=== PATIENT | male | born 1950 | race Caucasian/White ===

== ENCOUNTER 2019-06-14 05:31 | Emergency (ER) | payer MEDICARE, OTHER ==
[~2019-06-14] VITALS: Ht 170.2 cm; Wt 80.0 kg
[2019-06-14 07:46] LABS: VENOUS BASE EXCESS -17.5 (-2.0-2.0); VENOUS HCO3 18.4 MEQ/L (23.0-27.0); VENOUS O2 SATURATION < 15.0 % (60.0-80.0); VENOUS PARTIAL PRESSURE CO2 119.9 mmHg (38.0-50.0); VENOUS PARTIAL PRESSURE O2 14.1 mmHg (30.0-50.0); VENOUS PH 6.803 UNITS (7.330-7.430)
[2019-06-14 11:04] VITALS: BP 132/63
[2019-06-14] MEDS ORDERED: PHENYLEPHRINE INJ 10MG/ML VIAL (J2370) XX ONE ×2 (11:30→11:45)
--- NOTE | 2019-06-14 11:30 | ER ---
DATE OF CONSULTATION: 06/14/2019 CHIEF COMPLAINT: Persistent erection. HISTORY: Mr. Webster is a 68-year-old man who underwent radical robotic prostatectomy about a year ago in [place]. He was prescribed TriMix injections for erectile dysfunction, which he used last night at the 0.15 dose. Since that time, his erection has persisted and has been associated over the last few hours with increasing pain. He presented to the emergency room. He had tried to take Sudafed at home, which was unsuccessful. He did have one episode of slightly prolonged erection following an injection in the past that did respond to Sudafed. He has had no fevers or chills. No other episodes of priapism. He has had occasional nocturnal erections, just starting in the last few weeks. He is a year out from his surgery. He is scheduled for a urologic followup next month. PAST HISTORY: Significant for prostate cancer surgery. The patient is semi-retired and . He is [place]. He is a nonsmoker. His prostate cancer was contained to prostate with followup PSA undetectable. The remainder of his past medical, surgical, social, family history and review of systems please refer to dictated ER notes. PHYSICAL EXAMINATION: Blood pressure is 158/88, pulse 85, respirations 16, saturation 98. In general, the patient appeared in moderate distress. Neck supple. Chest clear. Heart exam regular rate and rhythm. Neurologic exam nonfocal. Abdominal exam soft, nontender without appreciable mass. Flanks nontender. Genital exam showed an erect phallus that was rigid and quite tender. Testes descended without masses. Rectal exam not done. Extremity exam unremarkable. IMPRESSION: Medication related priapism. PROCEDURE: After discussing the situation and options with the patient, I advised aspiration, irrigation and Isai-Synephrine instillation. To this end, we prepped and draped the penis and obtained local anesthetic with 2 mL of 1% lidocaine. An 18 gauge needle was then inserted into the left corporal body and blood was aspirated. It was quite dark. PH was 6.8 with pO2 14 and pCO2 over 110, base deficit -17. Aspiration was continued until the blood improved to a reddish color. Thereafter we irrigated the corporal bodies with a total of 30 mL of a dilute solution of Isai-Synephrine formulated by placing a vial in 250 mL of injectable grade saline. A total of 30 mL was irrigated. The corporal body needle was then withdrawn and the patient was observed for an hour during which time he had resolution and no significant recurrence of erection. At final check, the phallus was completely flaccid and the patient was in no discomfort. Some bruising evident in the lateral shaft of the phallus. IMPRESSION: Medication related priapism. PLAN: The patient has a scheduled appointment with his urologist in one month. I advised him against self injection during that time. In the future, should he decide to reinject, he should cut his current dose at least in half. He will return for recurrence of priapism or as needed. He will otherwise followup with his [facility] urologist.
[2019-06-14] MEDS ORDERED: LIDOCAINE 1% MDV INJ 50 ML VIAL XX ONE (11:45)
== END 2019-06-14 11:55 | disposition home or self-care (01) ==
LOC: M ED 05:31
DX: N48.33 Priapism, drug-induced (principal); Z79.899 Other long term (current) drug therapy
CPT/HCPCS: 36415; 54200; 82803; 99284; J2370